=== PATIENT | female | born 2000 | race Caucasian/White ===

== ENCOUNTER → 2025-05-12 10:02 | Outpatient (REF) | payer BC, SELFPAY | LOC: RAD 10:02 | PROVIDERS: ATTENDING PHYSICIAN Physician Assistant; FAMILY PHYSICIAN Family Medicine | DX: M25.531 Pain in right wrist (principal) | CPT/HCPCS: 73200 ==

== ENCOUNTER → 2025-07-11 15:16 | Outpatient (REF) | payer BC, SELFPAY | LOC: CLAB 15:16 | PROVIDERS: ATTENDING PHYSICIAN Orthopaedic Surgery Hand Surgery | DX: M89.8X9 Other specified disorders of bone, unspecified site (principal) | CPT/HCPCS: 88305; 88311 ==